=== PATIENT | female | born 1960 | race American Indian/Alaskan Native ===

== ENCOUNTER 2019-01-28 15:23 | Emergency (ER) | payer BC ==
[2019-01-28 15:58] VITALS: O2SAT 97; BMI 43.0
--- NOTE | 2019-01-28 16:36 | ED PDOC ---
Arrival/HPI - General Chief Complaint: Abdominal Pain Time Seen by Provider: 01/28/19 15:35 - History of Present Illness Narrative History of Present Illness (Text): 01/28/19 16:31 58 f with hx renal colic presents to the ED with left lower abdominal pain, acute onset since yesterday, sharp in nature, constant since onset, describe as feeling similar to previous episodes of renal colic. Patient denies bloody urine, no fever, no flank pain, no dysuria, +vomit in the waiting area, no diarrhea. Patient states she took a laxative without relief of symptoms. Past Medical History - Psychiatric Hx Substance Use: No - Surgical History Hx Hysterectomy: Yes Hx Orthopedic Surgery: Yes (TKR Right) - Anesthesia Hx Anesthesia: Yes Hx Anesthesia Reactions: No Family/Social History Family/Social History: No Known Family HX Smoking Status: Heavy Smoker > 10 Cigarettes Daily Hx Alcohol Use: No Hx Substance Use: No Allergies/Home Meds Allergies/Adverse Reactions: Allergies No Known Allergies Allergy (Verified 01/29/19 08:36) Review of Systems - Physician Review All systems were reviewed & negative as marked: Yes Physical Exam - Physical Exam Narrative Physical Exam (Text): 01/28/19 16:36 Gen: VS reviewed, alert, well developed, well nourished, nontoxic, mild to moderate distress second to pain Eye: EOMI, PERRL Neck: no JVD, supple, no adenopathy CV: regular rate, regular rhythm, no rubs,no murmur, S1, S2 Pulm: no distress, clear to auscultation, no wheeze, no rhonchi, breath sounds equal, no rales Abd: soft, nontender, no guarding, no rebound, no rigidity Ext: no edema Skin: good color, no rash, no cyanosis Psych: responds appropriately to questions, normal affect Neuro: oriented x3, CN2-12 intact grossly, motor intact, sensation intact Vital Signs Temp Pulse Resp BP Pulse Ox 01/28/19 15:57 97.9 F 101 H 18 126/81 97 Medical Decision Making ED Course and Treatment: 01/28/19 16:36 patient presents with acute left sided lower abdominal pain. Patient is noted to have no abdominal tenderness but pain is localized to the left lower abdomen. will get ct to workup for renal colic. 01/28/19 20:55 pain resolved, patient feels well to go home. will empirically tx for uti. it is possible that the patient had a stone but has now based. will dc with antiemeitc,anti-inflammatory and abx. patient understands and agrees with plan and will return for any new or worsening symptoms. - RAD Interpretation Radiology Orders: 01/28/19 16:31 ABDOMEN & PELVIS [ABD & PELVIS W/O PO OR IV CONT] [CT] Stat Disposition/Present on Arrival - Present on Arrival Any Indicators Present on Arrival: No History of DVT/PE: No History of Uncontrolled Diabetes: No Urinary Catheter: No History of Decub. Ulcer: No History Surgical Site Infection Following: None - Disposition Have Diagnosis and Disposition been Completed?: Yes Diagnosis: UTI (urinary tract infection) Disposition: HOME/ ROUTINE Disposition Time: 20:56 Patient Plan: Discharge Condition: STABLE Discharge Instructions (ExitCare): Urinary Tract Infection, Adult (DC) Additional Instructions: stay well hydrated (water). return for any new or worsening symptoms. follow up with your primary care doctor as soon as possible. Prescriptions: Ketorolac Tromethamine [Toradol] 10 mg PO Q6H 5 Days #20 tab Nitrofurantoin Macrocrystals [Macrobid] 100 mg PO BID 7 Days #13 cap Ondansetron [Zofran] 4 mg PO Q8H #12 tab Forms: [facility] (Nepalese), WORK NOTE
[2019-01-28] MEDS ORDERED: Sodium Chloride 0.9% 1,000 ML IV SCH (16:45)
[2019-01-28 17:42] LABS: BASO # 0.02 K/mm3 (0.0-2.0); BASO % 0.1 % (0.0-3.0); EOS # 0.1 (0.0-0.7); EOS % 0.6 % (1.5-5.0); HEMOGLOBIN 14.3 g/dL (12.0-16.0); LYMPH # 2.7 (1.2-3.4); MEAN CELL VOLUME 86.8 fl (80.0-105.0); MEAN CORPUSCULAR HEMOGLOBIN 28.1 pg (25.0-35.0); MEAN CORPUSCULAR HGB CONC 32.4 g/dl (31.0-37.0); MEAN PLATELET VOLUME 9.7 fl (7.0-11.0); MONO # 1.2 (0.1-0.6); MONO % 7.4 % (1.0-6.0); RBC 5.08 10^6/uL (3.5-6.1); WHITE BLOOD COUNT 16.6 10^3/uL (4.5-11.0)
[2019-01-28 17:49] LABS: ALBUMIN 4.1 g/dL (3.0-4.8); ALT/SGPT 16 U/L (7-56); AST/SGOT 23 U/L (14-36); BLOOD UREA NITROGEN 8 mg/dL (7-21); CALCIUM 9.5 mg/dL (8.4-10.5); GFR NON-AFRICAN AMERICAN > 60
[2019-01-28 17:54] LABS: URINE APPEARANCE SLIGHT-CLOUDY (CLEAR); URINE BILIRUBIN NEGATIVE (NEGATIVE); URINE BLOOD LARGE (NEGATIVE); URINE COLOR YELLOW (YELLOW); URINE GLUCOSE (UA) NEGATIVE (NEGATIVE); URINE LEUKOCYTE ESTERASE TRACE Leu/uL (NEGATIVE); URINE PROTEIN 100 mg/dL (<30 mg/dL); URINE UROBILINOGEN 0.2 E.U./dL (<1 E.U./dL)
[2019-01-28 17:56] LABS: URINE BACTERIA SMALL /hpf; URINE EPITHELIAL CELLS 0 - 2 /hpf (0-5); URINE RBC 20 - 25 /hpf (0-2)
[2019-01-28 21:34] VITALS: BP 130/85; PULSE 90; RESP 19; TEMP 97.5
--- NOTE | 2019-01-29 12:24 | CT ---
Date of service: 01/28/2019 PROCEDURE: CT Abdomen and Pelvis without intravenous contrast HISTORY: flank pain, left COMPARISON: None. TECHNIQUE: Technique. Contrast dose: Radiation dose: Total exam DLP = 950.94 mGy-cm. This CT exam was performed using one or more of the following dose reduction techniques: Automated exposure control, adjustment of the mA and/or kV according to patient size, and/or use of iterative reconstruction technique. FINDINGS: LOWER THORAX: Unremarkable. LIVER: Unremarkable. No gross lesion or ductal dilatation. GALLBLADDER AND BILE DUCTS: Cholelithiasis. PANCREAS: Unremarkable. No gross lesion or ductal dilatation. SPLEEN: Unremarkable. ADRENALS: Unremarkable. No mass. KIDNEYS AND URETERS: Question mild left hydronephrosis and hydroureter with questionable distal left ureteral calculus versus vascular calcification. VASCULATURE: Unremarkable. No aortic aneurysm. No aortic atherosclerotic calcification or mural plaque present. BOWEL: Unremarkable. No obstruction. No gross mural thickening. APPENDIX: Unremarkable. Normal appendix. PERITONEUM: Unremarkable. No free fluid. No free air. LYMPH NODES: Unremarkable. No enlarged lymph nodes. BLADDER: Unremarkable. REPRODUCTIVE: Hysterectomy. BONES: No acute fracture. OTHER FINDINGS: None. IMPRESSION: Question mild left hydronephrosis and hydroureter with questionable distal left ureteral calculus versus vascular calcification. Cholelithiasis. Status post hysterectomy.
== END 2019-01-28 21:33 | disposition home or self-care (01) ==
LOC: MERGE 15:23 → ED 15:23
DX: N39.0 Urinary tract infection, site not specified (principal); Z90.710 Acquired absence of both cervix and uterus
CPT/HCPCS: 74176; 80053; 81001; 85025; 87086; 96374; 96375; 99283; J1885; J2405; J7030